=== PATIENT | male | born 1970 | race Caucasian/White ===

== ENCOUNTER 2024-03-25 03:54 | Emergency (ER) | payer SELFPAY ==
[~2024-03-25] VITALS: Ht 170.2 cm; Wt 74.4 kg
[2024-03-25 03:56] VITALS: BP 139/83; PULSE 98; RESP 18; TEMP 98.8; O2SAT 96
[2024-03-25] MEDS: ACETAMINOPHEN EXTRA STRENGTH 500 MG TAB PO ONE (05:10)
[2024-03-25] MEDS: KETOROLAC 30 MG/ML VIAL IM ONE (05:11)
[2024-03-25 05:29] LABS: BASOPHILS % (AUTO) 0.3 % (0.0-2.0); HEMATOCRIT 47.2 % (36-52); HEMOGLOBIN 15.8 g/dL (12.0-18.0); LYMPHOCYTES # (AUTO) 0.8 K/uL (2.0-11.5); LYMPHOCYTES % (AUTO) 5.7 % (20.5-51.1); MEAN CORPUSCULAR HEMOGLOBIN 31 pg (27-31); MEAN CORPUSCULAR HGB CONC 34 g/dL (33-37); MEAN CORPUSCULAR VOLUME 91.4 fL (80-94); MONOCYTES # (AUTO) 0.5 K/uL (0.8-1.0); MONOCYTES % (AUTO) 3.7 % (1.7-9.3); NEUTROPHILS # (AUTO) 13.6 K/uL (1.8-7.7); NEUTROPHILS % (AUTO) 90.3 % (42.2-75.2); PLATELET COUNT (AUTO) 212 K/uL (140-450); RED BLOOD CELL COUNT(AUTO) 5.17 MIL/uL (4.20-6.10); RED CELL DISTRIBUTION WIDTH 13.3 % (11.6-13.7)
[2024-03-25 05:45] LABS: ANION GAP 13.3 (8-16); CALCIUM 8.2 mg/dL (8.5-10.1); CARBON DIOXIDE 26.3 mmol/L (21-32); POTASSIUM 3.6 mmol/L (3.5-5.1)
== END 2024-03-25 06:20 ==
LOC: MED 03:54
DX: R07.89 Other chest pain (principal); F10.129 Alcohol abuse with intoxication, unspecified; V49.9XXA Car occupant (driver) (passenger) injured in unspecified traffic accident, initial encounter; Y93.89 Activity, other specified; Y92.89 Other specified places as the place of occurrence of the external cause; Y99.8 Other external cause status; Y90.9 Presence of alcohol in blood, level not specified
CPT/HCPCS: 36415; 70450; 71250; 80048; 84484; 85025; 90471; 90715; 93005; 96372; 99285; J1885